=== PATIENT | male | born 1970 | race Caucasian/White ===

== ENCOUNTER 2018-02-05 09:57 | Emergency (ER) | payer BC ==
[2018-02-05] MEDS: HYDROmorphONE 1 MG/ML SYG IV (10:49)
[2018-02-05] MEDS: ONDANSETRON 4 MG INJ IV (10:49)
[2018-02-05 10:56] LABS: ADD MAN DIFF? NO
[2018-02-05 10:57] LABS: WHITE BLOOD COUNT 10.3 10^3/ul (4.8-10.8)
[2018-02-05 10:57] LABS: BASOPHIL # 0.1 10^3/ul (0.0-0.1); BASOPHILS % 0.6 % (0.0-2.0); EOSINOPHILS # 0.7 10^3/ul (0.0-0.5); EOSINOPHILS % 6.7 % (0.0-7.0); HEMATOCRIT 39.6 % (42.0-52.0); HEMOGLOBIN 13.5 g/dl (14.0-18.0); LYMPHOCYTES # 1.5 10^3/ul (0.8-2.9); LYMPHOCYTES % 14.8 % (15.0-51.0); MEAN CORPUSCULAR HEMOGLOBIN 29.3 pg (29.0-33.0); MEAN CORPUSCULAR HGB CONC 34.1 g/dl (32.0-37.0); MEAN CORPUSCULAR VOLUME 85.9 fl (82.0-101.0); MEAN PLATELET VOLUME 9.2 fl (7.4-10.4); MONOCYTES % 9.4 % (0.0-11.0); NEUTROPHILS % 68.1 % (39.0-77.0); PLATELET COUNT 242 10^3/UL (140-415); RED BLOOD COUNT 4.61 10^6/ul (4.70-6.10)
[2018-02-05 11:26] LABS: URIC ACID 11.7 mg/dl (3.1-7.9)
[2018-02-05] MEDS: METHYLPREDNISOLONE 125 MG INJ IV (12:10)
[2018-02-05] MEDS: KETOROLAC 30 MG INJ IV (12:10)
[2018-02-05 12:32] LABS: ERYTHROCYTE SEDIMENTATION RATE 20 mm/Hr (0-15)
== END 2018-02-05 13:55 | disposition home or self-care (01) ==
LOC: E/R 09:57
DX: M10.9 Gout, unspecified (principal); I10 Essential (primary) hypertension
CPT/HCPCS: 84560; 85025; 85651; 93971; 96374; 96375; 99285-25